=== PATIENT | female | born 1970 | race Caucasian/White ===

== ENCOUNTER 2017-01-31 16:32 | Emergency (ER) | payer MEDICAID ==
[2017-01-31 18:05] LABS: BASO % 0.3 % (0-6); EOS % 0.9 % (0-6); GRAN % 57.1 % (47-80); HEMATOCRIT 40.2 % (35.0-47.0); LYMPH % 37.6 % (16-45); MEAN CORPUSCULAR HEMOGLOBIN 29.4 pg (27-33); MEAN CORPUSCULAR HGB CONC 32.3 g/dl (32-36); MEAN PLATELET VOLUME 9.5 fl (7.4-10.4); MONO % 4.1 % (0-9); PLATELET COUNT 284 K/uL (130-400); RED BLOOD COUNT 4.42 M/uL (3.80-5.40); RED CELL DISTRIBUTION WIDTH 13.5 % (11.5-14.5); WHITE BLOOD COUNT W/O DIFF 7.5 K/uL (4.2-12.2)
--- NOTE | 2017-01-31 18:09 | Emergency Department Record ---
History of Present Illness - General Chief Complaint: Dizziness Stated Complaint: DIZZINESS Time Seen by Provider: 01/31/17 17:42 Source: Patient Mode of Arrival: Ambulatory Limitations: No limitations - History of Present Illness Initial Comments: [facility] her meds and they found her bp to be 135/. so they sent her to ed to be evaluated. pt states that she had 8 mos of refills and now has run out of all her meds. she has no lira, no cp. MD Complaint: Dizziness Timing: Gradual onset Description: Other History of Same: No History of Trauma: No Severity: Mild Improves With: Nothing Worsens With: Position Associated Symptoms: Denies other symptoms - Warner Coma Scale Eye Response: (4) Open spontaneously Motor Response: (6) Obeys commands Verbal Response: (5) Oriented Brad Total: 15 - Symptoms of Stroke Symptoms of stroke: Dizziness, Vertigo - Related Data Previous Rx's Medication Instructions Recorded Meclizine HCl [Antivert] 25 mg PO BID PRN #10 tab 01/31/17 Omeprazole 20 mg PO BID #20 capsule. 01/31/17 Simvastatin 40 mg PO QHS #20 tablet 01/31/17 Allergies Allergy/AdvReac Type Severity Reaction Status Date / Time tramadol AdvReac VOMITING Unverified 01/31/17 16:40 Travel Screening - Travel/Exposure Within Last 30 Days Have you traveled within the last 30 days?: No Review of Systems Reviewed: No additional complaints except as noted below Constitutional: Reports: As per HPI. Denies: Chills, Fever, Malaise, Night sweats, Weakness, Weight change Eyes: Reports: As per HPI. Denies: Eye discharge, Eye pain, Photophobia, Vision change ENT: Reports: As per HPI. Denies: Congestion, Dental pain, Ear pain, Epistaxis , Hearing loss, Throat pain Respiratory: Reports: As per HPI. Denies: Cough, Dyspnea, Hemoptysis, Stridor, Wheezes Cardiovascular: Reports: As per HPI. Denies: Arrhythmia, Chest pain, Dyspnea on exertion, Edema, Murmurs, Orthopnea, Palpitations, Paroxysmal nocturnal dyspnea, Rheumatic Fever, Syncope Endocrine: Reports: As per HPI. Denies: Fatigue, Heat or cold intolerance, Polydipsia, Polyuria Gastrointestinal: Reports: As per HPI. Denies: Abdominal pain, Constipation, Diarrhea, Hematemesis, Hematochezia, Melena, Nausea, Vomiting Genitourinary: Reports: As per HPI. Denies: Abnormal menses, Discharge, Dyspareunia, Dysuria, Frequency, Hematuria, Incontinence, Retention, Urgency Musculoskeletal: Reports: As per HPI. Denies: Arthralgia, Back pain, Gout, Joint swelling, Myalgia, Neck pain Skin: Reports: As per HPI. Denies: Bruising, Change in color, Change in hair/ nails, Lesions, Pruritus, Rash Neurological: Reports: As per HPI. Denies: Abnormal gait, Confusion, Headache, Numbness, Paresthesias, Seizure, Tingling, Tremors, Vertigo, Weakness Psychiatric: Reports: As per HPI. Denies: Anxiety, Auditory hallucinations, Depression, Homicidal thoughts, Suicidal thoughts, Visual hallucinations Hematological/Lymphatic: Reports: As per HPI. Denies: Anemia, Blood Clots, Easy bleeding, Easy bruising, Swollen glands Past Medical History - SOCIAL HISTORY Smoking Status: Current every day smoker Alcohol Use: None Drug Use: None - RESPIRATORY Hx Respiratory Disorders: Yes Hx Asthma: Yes Hx COPD: Yes - CARDIOVASCULAR Hx Cardio Disorders: Yes Hx Edema: Yes Comment:: high cholesterol - NEURO Hx Neuro Disorders: No - GI Hx GI Disorders: Yes Hx Reflux: Yes - Hx Genitourinary Disorders: No - ENDOCRINE Hx Endocrine Disorders: No - MUSCULOSKELETAL Hx Musculoskeletal Disease: Yes Comment:: Scoliosis - PSYCH Hx Psych Problems: No - HEMATOLOGY/ONCOLOGY Hx Hematology/Oncology Disorders: Yes Hx Cancer: Yes (cervix) Family Medical History Any Significant Family History?: Yes Hx Cancer: Mother Hx Diabetes: Mother Hx Heart Disease: Father Hx Stroke: Mother Physical Exam - General General Appearance: Alert, Oriented x3, Cooperative, No acute distress - Head Head exam: Normal inspection - Eye Eye exam: Normal appearance, PERRL, EOMI Pupils: Normal accommodation - ENT ENT exam: Normal exam, Mucous membranes moist, Normal external ear exam, Normal orophraynx Ear exam: Normal external inspection. negative: External canal tenderness Nasal Exam: Normal inspection. negative: Discharge, Sinus tenderness Mouth exam: Normal external inspection, Tongue normal Teeth exam: Normal inspection. negative: Dental caries Throat exam: Normal inspection. negative: Tonsillar erythema, Tonsillar exudate - Neck Neck exam: Normal inspection, Full ROM. negative: Tenderness - Respiratory Respiratory exam: Normal lung sounds bilaterally. negative: Respiratory distress - Cardiovascular Cardiovascular Exam: Regular rate, Normal rhythm, Normal heart sounds - GI/Abdominal GI/Abdominal exam: Soft, Normal bowel sounds. negative: Tenderness - Rectal Rectal exam: Deferred - exam: Deferred - Extremities Extremities exam: Normal inspection, Full ROM, Normal capillary refill. negative: Tenderness - Back Back exam: Reports: Normal inspection, Full ROM. Denies: Muscle spasm, Rash noted, Tenderness - Neurological Neurological exam: Alert, CN II-XII intact, Normal gait, Oriented X3 - Psychiatric Psychiatric exam: Normal affect, Normal mood - Skin Skin exam: Dry, Intact, Normal color, Warm Course Vital Signs 01/31/17 16:42 Temperature 97.6 F Pulse Rate 96 H Respiratory 18 Rate Blood Pressure 148/93 Pulse Ox 98 - Reevaluation(s) Reevaluation #1: 01/31/17 18:55 pt had no cp at any time Medical Decision Making - Lab Data Result diagrams: 01/31/17 17:58 01/31/17 17:58 Disposition Disposition: Discharge Clinical Impression: Vertigo Hypertension Qualifiers: Hypertension type: unspecified Qualified Code(s): I10 - Essential (primary) hypertension Disposition: Home, Self-Care Condition: (1) Good Instructions: Vertigo (ED), Hypertension (ED) Additional Instructions: follow up with family doctor. return sooner if worse. have blood pressure rechecked tomorrow. have stress test. Prescriptions: Simvastatin 40 mg PO QHS #20 tablet Meclizine HCl [Antivert] 25 mg PO BID PRN #10 tab PRN Reason: Vertigo Omeprazole 20 mg PO BID #20 capsule.dr Forms: Patient Portal Access Quality - Quality Measures Quality Measures: N/A - Blood Pressure Screening Does Patient Have Any of the Following: No Blood Pressure Classification: Hypertensive Reading Systolic Measurement: 148 Diastolic Measurement: 93 Screening for High Blood Pressure: < First Hypertensive BP, F/U Documented > [ G8950] First Hypertensive Follow-up Interventions: Follow-up with rescreen GT 1 day and LT 4 weeks.
[2017-01-31 18:17] LABS: BLOOD UREA NITROGEN 9 mg/dL (6-20); CREATININE 0.7 mg/dL (0.5-0.9); EST GLOMERULAR FILTRATION RATE > 60 mL/min; GLUCOSE,RANDOM 93 mg/dL (74-109)
--- NOTE | 2017-02-02 07:59 | CT SCAN REPORT ---
DATE: 01/31/2017 at 1803. EXAM: CT OF THE HEAD WITHOUT CONTRAST. HISTORY: Headaches and vertigo. TECHNIQUE: Routine noncontrast CT examination of the head is performed. COMPARISON: None. FINDINGS: The ventricles and subarachnoid spaces are normal in size. No area of abnormally increased or decreased attenuation is noted throughout the brain substance. No abnormal extra-axial fluid collection is seen. There is minor mucosal thickening within the left maxillary sinus, several ethmoid air cells in the left frontal sinus. The orbits as visualized are unremarkable. IMPRESSION: 1. NO INTRACRANIAL ABNORMALITY IDENTIFIED. 2. MINOR MUCOSAL THICKENING IN SEVERAL PARANASAL SINUSES. JOB NUMBER: [id number] MTDD
== END 2017-01-31 19:01 | disposition home or self-care (01) ==
LOC: ER 16:32
DX: R42 Dizziness and giddiness (principal); I10 Essential (primary) hypertension; J44.9 Chronic obstructive pulmonary disease, unspecified; F17.210 Nicotine dependence, cigarettes, uncomplicated
CPT/HCPCS: 70450; 80048; 85025; 99283; 99284

== ENCOUNTER 2017-09-26 16:43 | Emergency (ER) | payer MEDICAID ==
--- NOTE | 2017-09-26 17:04 | Emergency Department Record ---
History of Present Illness - General Chief complaint: ENT Stated complaint: RT EAR PAIN Time Seen by Provider: 09/26/17 16:55 Source: Patient Mode of Arrival: Ambulatory Limitations: No limitations - History of Present Illness MD complaint: Ear pain Onset/Timin -: Days(s) Location: R ear Severity: Moderate Severity scale (1-10): 7 Quality: Aching Consistency: Constant Improves with: None Worsens with: None - Related Data Previous Rx's Medication Instructions Recorded Azithromycin [Zithromax] 250 mg PO DAILY 5 Days #6 tablet 09/26/17 Allergies Allergy/AdvReac Type Severity Reaction Status Date / Time tramadol AdvReac VOMITING Verified 09/26/17 16:48 Travel Screening - Travel/Exposure Within Last 30 Days Have you traveled within the last 30 days?: No Review of Systems Constitutional: Denies: Chills, Fever Eyes: Denies: Photophobia, Vision change ENT: Reports: Ear pain. Denies: Congestion Respiratory: Reports: Cough Cardiovascular: Denies: Chest pain Endocrine: Denies: Fatigue Gastrointestinal: Denies: Abdominal pain Musculoskeletal: Denies: Arthralgia Skin: Denies: Bruising Neurological: Denies: Abnormal gait Past Medical History - SOCIAL HISTORY Smoking Status: Current every day smoker Alcohol Use: None Drug Use: None - RESPIRATORY Hx Respiratory Disorders: Yes Hx Asthma: Yes Hx COPD: Yes - CARDIOVASCULAR Hx Cardio Disorders: Yes Hx Edema: Yes Hx Hypertension: Yes Comment:: high cholesterol - NEURO Hx Neuro Disorders: No - GI Hx GI Disorders: Yes Hx Reflux: Yes - Hx Genitourinary Disorders: No - ENDOCRINE Hx Endocrine Disorders: No - MUSCULOSKELETAL Hx Musculoskeletal Disease: Yes Comment:: Scoliosis - PSYCH Hx Psych Problems: No - HEMATOLOGY/ONCOLOGY Hx Hematology/Oncology Disorders: Yes Hx Cancer: Yes (cervix) Family Medical History Any Significant Family History?: Yes Hx Cancer: Mother Hx Diabetes: Mother Hx Heart Disease: Father Hx Stroke: Mother Physical Exam - General General Appearance: Alert, Oriented x3, Cooperative - Head Head exam: Atraumatic - Eye Eye exam: Normal appearance, PERRL, EOMI - ENT ENT exam: Mucous membranes moist, Normal external ear exam, Normal orophraynx Ear exam: Other (left TM clear, Right TM retracted and red) Nasal Exam: Normal inspection Mouth exam: Normal external inspection Teeth exam: Normal inspection Throat exam: Normal inspection - Neck Neck exam: Full ROM, Lymphadenopathy. negative: Meningismus - Respiratory Respiratory exam: Normal lung sounds bilaterally. negative: Rhonchi, Wheezes - Cardiovascular Cardiovascular Exam: Regular rate, Normal rhythm - GI/Abdominal GI/Abdominal exam: Soft. negative: Tenderness - Extremities Extremities exam: Normal inspection. negative: Tenderness - Back Back exam: Reports: Normal inspection - Neurological Neurological exam: Alert, Normal gait, Oriented X3 - Psychiatric Psychiatric exam: Normal affect, Normal mood - Skin Skin exam: Normal color Course Vital Signs 09/26/17 16:46 Temperature 97.3 F L Pulse Rate 125 H Respiratory 18 Rate Blood Pressure 144/82 Pulse Ox 97 Disposition Disposition: Discharge Clinical Impression: Otitis media of right ear Disposition: Home, Self-Care Condition: (1) Good Instructions: Otitis Media (ED) Prescriptions: Azithromycin [Zithromax] 250 mg PO DAILY 5 Days #6 tablet Forms: Patient Portal Access Quality - Quality Measures Quality Measures: N/A - Blood Pressure Screening Does Patient Have Any of the Following: No Blood Pressure Classification: Pre-Hypertensive BP Reading Systolic Measurement: 144 Diastolic Measurement: 82 Screening for High Blood Pressure: < Pre-Hypertensive BP, F/U Documented > [ G8950] Pre-Hypertensive Follow-up Interventions: Lifestyle modifications. Lifestyle Modification: Dietary Sodium Restriction
== END 2017-09-26 17:14 | disposition home or self-care (01) ==
LOC: ER 16:43
DX: H66.91 Otitis media, unspecified, right ear (principal); I10 Essential (primary) hypertension; F17.210 Nicotine dependence, cigarettes, uncomplicated
CPT/HCPCS: 99282

== ENCOUNTER 2018-09-25 18:05 | Emergency (ER) | payer MEDICAID ==
[2018-09-25] MEDS ORDERED: PROPARACAINE HCL OPTH 15ML BTL OPTH ONE (18:15)
[2018-09-25] MEDS ORDERED: ERYTHROMYCIN OPTH OINT 3.5GM OPTH ONE (18:33)
[2018-09-25] MEDS ORDERED: HYDROCODONE/APAP 5/325MG TABLET PO ONE (18:33)
[2018-09-25] MEDS ORDERED: IBUPROFEN 600 MG TABLET PO ONE (18:36)
--- NOTE | 2018-09-25 18:40 | Emergency Department Record ---
History of Present Illness - General Chief complaint: Eye Problem Stated complaint: SCRATCHED LT EYE Time Seen by Provider: 09/25/18 18:33 Source: Patient Mode of Arrival: Ambulatory Limitations: No limitations - History of Present Illness Initial comments: 48 yo female presents after her 2 month old grandchild scratched her left eye. She does not wear contacts. The injury occurred 1 hour ago. She has sensitivity but she can see. Tetanus is up to date. No other injury. She gets her eye care through [facility] in [place]. chief complaint: Eye pain, Eye injury Onset/Timin -: Minutes(s) Location: Left eye Place: Home If Injury: None Eye Symptoms: Burning, Blurry vision, Decreased vision, Pain Severity: Mild Severity scale (1-10): 3 If Pain, Quality: Aching Consistency: Constant Associated Symptoms: None Treatments Prior to Arrival: None - Related Data Visual acuity (L) = 20/: 25 Visual acuity (R) = 20/: 25 With correction: No Allergies Allergy/AdvReac Type Severity Reaction Status Date / Time tramadol AdvReac VOMITING Verified 09/25/18 18:12 Travel Screening - Travel/Exposure Within Last 30 Days Have you traveled within the last 30 days?: No Review of Systems Constitutional: Denies: Chills, Fever, Malaise, Weakness Eyes: Reports: Eye pain, Photophobia. Denies: Eye discharge, Vision change ENT: Denies: Congestion, Throat pain Respiratory: Denies: Cough Cardiovascular: Denies: Chest pain, Edema Endocrine: Denies: Fatigue Gastrointestinal: Denies: Abdominal pain, Diarrhea, Nausea, Vomiting Genitourinary: Denies: Dysuria, Urgency Musculoskeletal: Denies: Arthralgia, Back pain, Myalgia Skin: Denies: Bruising, Change in color, Rash Neurological: Denies: Headache Psychiatric: Denies: Anxiety Hematological/Lymphatic: Denies: Easy bleeding, Easy bruising Past Medical History - SOCIAL HISTORY Smoking Status: Current every day smoker Alcohol Use: None Drug Use: None - RESPIRATORY Hx Respiratory Disorders: Yes Hx Asthma: Yes Hx COPD: Yes - CARDIOVASCULAR Hx Cardio Disorders: Yes Hx Edema: Yes Hx Hypertension: Yes Comment:: high cholesterol - NEURO Hx Neuro Disorders: No - GI Hx GI Disorders: Yes Hx Reflux: Yes - Hx Genitourinary Disorders: No - ENDOCRINE Hx Endocrine Disorders: No - MUSCULOSKELETAL Hx Musculoskeletal Disease: Yes Comment:: Scoliosis - PSYCH Hx Psych Problems: No - HEMATOLOGY/ONCOLOGY Hx Hematology/Oncology Disorders: Yes Hx Cancer: Yes (cervix) Family Medical History Any Significant Family History?: Yes Hx Cancer: Mother Hx Diabetes: Mother Hx Heart Disease: Father Hx Stroke: Mother Physical Exam - General General Appearance: Alert, Oriented x3, Cooperative, No acute distress Limitations: No limitations - Head Head exam: Atraumatic, Normal inspection - Eye Eye exam: Normal appearance, PERRL, Conjunctival injection, EOMI. negative: Periorbital swelling Pupils: Normal accommodation, Other (Slit lamp performed. AC is clear. Stain was applied. Central corneal abrasion with uptake. No streaming. She got symptomatic relief with the topical alcaine). negative: Irregular, Unequal Visual acuity (L) = 20/: 25 Visual acuity (R) = 20/: 25 With correction: No - ENT ENT exam: Normal exam Ear exam: Normal external inspection Nasal Exam: Normal inspection Mouth exam: Normal external inspection - Neck Neck exam: Normal inspection - Neurological Neurological exam: Alert, Oriented X3 - Psychiatric Psychiatric exam: Normal affect, Normal mood - Skin Skin exam: Dry, Intact, Normal color, Warm Course Vital Signs 09/25/18 18:10 Temperature 98.4 F Pulse Rate 107 H Respiratory 20 Rate Blood Pressure 118/96 Pulse Ox 97 - Reevaluation(s) Reevaluation #1: 09/25/18 18:38 The examination is consistent with corneal abrasion VA is 20/25 bilateral She was given erythromycin ointment in the ED She was given home instructions and the recommendation to call her eye doctor tomorrow for a recheck given the location We discussed reasons to return to the ED immediately as well. Disposition Disposition: Discharge Clinical Impression: Corneal abrasion Qualifiers: Encounter type: initial encounter Laterality: left Qualified Code(s): S05.02XA - Injury of conjunctiva and corneal abrasion without foreign body, left eye, initial encounter Disposition: Home, Self-Care Condition: (1) Good Instructions: Corneal Abrasion (ED) Additional Instructions: Apply the ointment every 4 hours Call your eye doctor in the morning for a recheck tomorrow Return if unable to see your doctor, worse, vision changes or any other concerns. Time of Disposition: 18:42 Quality - Quality Measures Quality Measures: N/A - Blood Pressure Screening Does Patient Have Any of the Following: Active Dx of HTN Blood Pressure Classification: Hypertensive Reading Systolic Measurement: 118 Diastolic Measurement: 96 Screening for High Blood Pressure: Patient Exclusion, Hx of HTN [G9744]
== END 2018-09-25 19:00 | disposition home or self-care (01) ==
LOC: ER 18:05
DX: S05.02XA Injury of conjunctiva and corneal abrasion without foreign body, left eye, initial encounter (principal); H53.8 Other visual disturbances; W50.4XXA Accidental scratch by another person, initial encounter; Y92.009 Unspecified place in unspecified non-institutional (private) residence as the place of occurrence of the external cause; J44.9 Chronic obstructive pulmonary disease, unspecified; I10 Essential (primary) hypertension; F17.210 Nicotine dependence, cigarettes, uncomplicated
CPT/HCPCS: 99283